=== PATIENT | female | born 2000 | race African-American/Black ===

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

== ENCOUNTER 2021-12-01 16:02 | Emergency (ER) | payer MEDICARE ==
[~2021-12-01] VITALS: Ht 157.5 cm; Wt 68.0 kg
[2021-12-01 16:07] VITALS: BP 127/85
[2021-12-01] MEDS ORDERED: POLY10DR RIGHTEYE ×2 (18:49)
== END 2021-12-01 19:04 | disposition home or self-care (01) ==
LOC: ER 16:02
DX: H10.89 Other conjunctivitis (principal)
CPT/HCPCS: 99283